=== PATIENT | female | born 1985 | race Caucasian/White ===

== ENCOUNTER 2022-04-05 17:32 | Emergency (ER) | payer OTHER, BC, SELFPAY ==
--- NOTE | ~2022-04-05 | XR_ITS ---
EXAM: XR shoulder LT min 2V DATE: 04/05/2022 18:40 HISTORY: left shoulder injury . COMPARISON: None available. FINDINGS: Normal mineralization. No fracture or dislocation. No lytic or blastic lesion. Joint space s are maintained. No erosion or periosteal change. Soft tissues within normal limits. IMPRESSION: No acute osseous finding in the left shoulder. Reviewed, dictated and finalized at location K.
[2022-04-05 18:13] VITALS: BP 144/64; PULSE 87; RESP 18; TEMP 36.4; O2SAT 100
--- NOTE | 2022-04-05 19:39 | ED.UPPEXIN ---
HPI - Extremity Injury (Upper) General Chief Complaint: Extremity Injury, Upper Stated Complaint: left shoulder injury Time Seen by Provider: 04/05/22 18:10 History of Present Illness HPI narrative: 37-year-old female presents the emergency room for evaluation of left shoulder pain. Patient states she works at [employer], and she was going to the bank to deposit money. Patient states that she had a bag of body in her right hand and transferred her to her left. Upon doing this, she felt a pop sensation in her left shoulder. States that she is unable to move it in multiple directions due to the pain. Review of Systems Review of Systems: CONSTITUTIONAL: Denies fever, chills, or sweats. EYES: Denies visual changes, redness, or discharge. ENT: Denies rhinorrhea, congestion, sore throat, or otalgia. CARDIOVASCULAR: Denies chest pain, palpitations, or edema. RESPIRATORY: Denies cough or dyspnea. GASTROINTESTINAL: Denies abdominal pain, nausea, vomiting, or diarrhea. GENITOURINARY: Denies dysuria or hematuria. SKIN: Denies rash or itching. MUSCULOSKELETAL: Reports left shoulder pain NEUROLOGIC: Denies headache, numbness, dizziness, or weakness. PSYCHIATRIC: Denies anxiety or depression. Exam Narrative: GENERAL: Well-appearing, well-nourished, no physical limitations, and in no acute distress. HEAD: Normocephalic, atraumatic. EYES: Conjunctivae normal, PERRLA and EOMI. CHEST: Clear to auscultation. No respiratory distress. No wheezes rales or rhonchi. No tenderness. HEART: Regular rate and rhythm. No murmur heard. Normal peripheral pulses. BACK: No cervical/thoracic/lumbar tenderness, step-offs, bony abnormality; FROM EXTREMITIES: Left shoulder: Tenderness over the bicep muscle. Limited range of motion with flexion, extension and abduction. Positive drop can test SKIN: Warm, dry, no rash. No noted wounds NEURO: No focal deficits. Alert and oriented x3. MAEW. CN's II-XI intact bilaterally, normal gait PSYCH: Cooperative. Normal mood and affect. Course Vital Signs Vital signs: Vital Signs Temperature 36.4 C L 04/05/22 18:13 Pulse Rate 87 04/05/22 18:13 Respiratory Rate 18 04/05/22 18:13 Blood Pressure 144/64 H 04/05/22 18:13 Pulse Oximetry 100 04/05/22 18:13 Temperature 36.4 C L 04/05/22 18:13 Pulse Rate 87 04/05/22 18:13 Respiratory Rate 18 04/05/22 18:13 Blood Pressure 144/64 H 04/05/22 18:13 Pulse Oximetry 100 04/05/22 18:13 MDM - Extremity Injury (Upper) Imaging Data Radiologist's impression: Impressions Shoulder X-Ray 04/05/22 19:16 IMPRESSION: No acute osseous finding in the left shoulder. Discharge Plan Discharge Clinical Impression: Rotator cuff strain Patient Disposition: Home, Self-Care Condition: Stable Instructions: Antibiotic Form, Rotator Cuff Injury (ED), Rotator Cuff Injury Exercises (DC) Prescriptions: New methocarbamol 500 mg tablet 500 mg PO TID 7 Days Qty: 21 0RF Follow-up/Referrals: Betzy,Vielka Nick MD [Primary Care Provider] - Adriel Moore MD [Physician] - Time of Disposition: 19:38
== END 2022-04-05 19:52 | disposition home or self-care (01) ==
LOC: ANHED 19:41
PROVIDERS: Emergency Provider Nurse Practitioner Family; PCP Family Medicine
DX: S46.012A Strain of muscle(s) and tendon(s) of the rotator cuff of left shoulder, initial encounter (principal); X50.0XXA Overexertion from strenuous movement or load, initial encounter
CPT/HCPCS: 73030; 99283

== ENCOUNTER 2023-04-19 17:37 | Emergency (ER) | payer BC, SELFPAY ==
--- NOTE | ~2023-04-19 | CT_ITS ---
EXAMINATION: CT facial bones w con DATE: 04/19/2023 20:04 INDICATION: Status post wisdom tooth extraction. Bloody discharge. TECHNIQUE: Computed tomography (CT) of the facial bones was performed with 75 cc Omnipaque 350 intrav enous contrast. The dose-length product was 428.00 mGy-cm. Automated exposure control and iterative r econstruction technique were employed. COMPARISON: None FINDINGS: Status post bilateral upper and lower wisdom tooth extraction with associated soft tissue a nd fluid. The fluid and soft tissue extends just lateral to the extraction site, likely postsurgical change. There is moderate mucosal thickening of the maxillary sinuses. There is deformity of the late ral wall of the maxillary sinuses bilaterally,, consistent with nondisplaced fracture. Mastoids are p neumatized. There is mild bilateral submandibular lymphadenopathy, likely reactive. IMPRESSION: 1. Postsurgical changes are present bilaterally consistent with prior bilateral upper and lower wisdo m tooth extraction with associated fractures of the inferior lateral nelson of the maxillary sinuses. Soft tissue and gas extend lateral to the extraction site, likely postsurgical. Cannot exclude underl helena infection. 2: Moderate soft tissue opacification of the maxillary sinuses, left greater than right which may re present a combination of hemorrhage and mucosal thickening. 3: Bilateral submandibular lymphadenopathy, likely reactive. Reviewed, dictated and finalized at location A. IMPRESSION: 1. Postsurgical changes are present bilaterally consistent with prior bilateral upper and lower wisdom tooth extraction with associated fractures of the infer ior lateral nelson of the maxillary sinuses. Soft tissue and gas extend lateral to the extraction site, likely postsurgical. Cannot exclude underlying infectio n. 2: Moderate soft tissue opacification of the maxillary sinuses, left greater t silva right which may represent a combination of hemorrhage and mucosal thickenin g. 3: Bilateral submandibular lymphadenopathy, likely reactive.
[2023-04-19 17:42] VITALS: BP 148/106; PULSE 92; RESP 20; TEMP 36.7; O2SAT 100
--- NOTE | 2023-04-19 18:48 | ED.GENADULT ---
HPI - General Adult General Chief complaint: Unspecified Stated complaint: mouth bleeding post op Time Seen by Provider: 04/19/23 18:23 Source: patient Mode of arrival: ambulatory Limitations: no limitations History of Present Illness HPI narrative: This is a 38-year-old female with PMH of iron deficiency anemia who presents to the ED with with chief complaint of epistaxis bloody discharge after wisdom tooth extraction. She reports her wisdom tooth surgery was 1 week ago. She was using saline rinses for dry socket today as instructed by her dentist and feels that the bleeding from her mouth and nose started shortly after that. Reports she has been bleeding copious amounts of bloody mucus and clots. States her pain is controllable with Percocet. Denies fevers, chills, nausea, vomiting. Related Data Allergies Allergy/AdvReac Type Severity Reaction Status Date / Time No Known Allergies Allergy Verified 04/05/22 19:44 Review of Systems Review of Systems: All systems as dictated in HPI Exam Narrative: GENERAL: Well-appearing, well-nourished, and in no acute distress. HEAD: Normocephalic, atraumatic. EYES: PERRLA and EOMI. ENT: Nares with dried blood. No active bleeding. Grant teeth extraction sites with dried blood and no active bleeding. Mucous membranes moist. Oropharynx without tonsillar hypertrophy exudate or other lesions. Large amount of blood/mucous noted that patient brought in with her. NECK: Supple. No adenopathy or masses. CHEST: No respiratory distress. Clear to auscultation. No wheezes rales or rhonchi HEART: Regular rate and rhythm. No murmur heard. Normal peripheral pulses. ABDOMEN: Soft, nontender, nondistended, normal active bowel sounds. MSK: Normal range of motion. No edema. SKIN: Warm, dry, no rash. NEURO: Alert and oriented x3. No focal deficits. PSYCH: Normal mood and affect. Course Course Emergency Course: Consult 2129: Spoke with Dr. Walters (ENT). Recommends using Afrin and giving clindamycin to cover for any possible infection. He agrees that if she is not toxic appearing findings on the CT scan are likely just postsurgical. He will see patient in clinic tomorrow if the bleeding stops. If it does not he recommends her staying in the hospital. No further recommendations. Reevaluated the patient multiple times. She has had no continued bleeding after several hours of monitoring here in the department. She feels comfortable going home. Vital Signs Vital signs: Vital Signs Temperature 98.1 F 04/19/23 17:42 Pulse Rate 92 04/19/23 17:42 Respiratory Rate 20 04/19/23 17:42 Blood Pressure 148/106 H 04/19/23 17:42 Pulse Oximetry 100 04/19/23 17:42 Oxygen Delivery Room Air 04/19/23 17:42 Temperature 98.1 F 04/19/23 17:42 Pulse Rate 66 04/19/23 21:50 Respiratory Rate 15 04/19/23 21:50 Blood Pressure 136/87 04/19/23 21:50 Pulse Oximetry 99 04/19/23 21:50 Oxygen Delivery Room Air 04/19/23 17:42 Medical Decision Making MDM Narrative Medical decision making narrative: This is a 38-year-old female who presents to the ED with chief complaint of epistaxis and spitting up blood 1 week after wisdom tooth surgery. Vitals are normal. Exam shows dried blood to the nares and wisdom teeth extraction sites. She has brought in a bucket that is full bloody discharge. CBC shows evidence of anemia with hemoglobin at 9.8 however she does note that she has history of iron deficiency anemia so it is unclear whether this is from any acute bleeding episode or chronic. CMP unremarkable. Coags also normal. CT scan facial bones: 1. Postsurgical changes are present bilaterally consistent with prior bilateral upper and lower wisdom tooth extraction with associated fractures of the inferior lateral nelson of the maxillary sinuses. Soft tissue and gas extend lateral to the extraction site, likely postsurgical. Cannot exclude underlying infection. 2:? Moderate soft
[2023-04-19 19:20] LABS: Basophils Absolute Auto 0.1 K/mm3 (0.0-0.1); Basophils Percent Auto 0.9 % (0.2-1.2); Eosinophils Absolute Auto 0.2 K/mm3 (0-0.3); Eosinophils Percent Auto 2.3 % (0-4.4); Hematocrit 32.8 % (37.0-47.0); Hemoglobin 9.8 g/dL (12.0-15.0); Immature Granulocyte Absolute 0.03 K/mm3 (0.00-0.031); Immature Granulocyte Percent A 0.4 % (0-0.5); Lymphocytes Absolute Auto 1.91 K/mm3 (0.9-3.2); Lymphocytes Percent Auto 23.6 % (18.3-44.2); Mean Corpuscular HGB Conc 29.9 g/dl (32-36); Mean Corpuscular Volume 80.4 fl (80-100); Mean Platelet Volume 9.6 fl (7.4-10.4); Monocytes Absolute Auto 0.6 K/mm3 (0.1-0.6); Monocytes Percent Auto 7.7 % (2.6-8.5); Neutrophils Absolute Auto 5.3 K/mm3 (1.3-6.7); Neutrophils Percent Auto 65.1 % (45.5-73.1); Platelet Count Result 486 k/mm3 (150-375); Red Blood Count 4.08 M/mm3 (4.2-5.4); Red Cell Distribution Width 16.4 % (11.5-14.5); White Blood Count 8.1 K/mm3 (4.5-10.0)
[2023-04-19 19:30] LABS: Alanine Aminotransferase 16 U/L (6-35); Albumin Level 4.2 g/dL (3.5-5.1); Alkaline Phosphatase 64 U/L (38-126); Anion Gap 5 mmol/L (8-16); Aspartate Amino Transferase 22 U/L (14-36); Bilirubin,Total 0.3 mg/dL (0.2-1.3); Blood Urea Nitrogen 11 mg/dL (7-17); Calcium 9.2 mg/dL (8.4-10.2); Carbon Dioxide 29 mmol/L (22-30); Chloride 106 mmol/L (98-107); Estimated CRCL calculation 91 ml/min; Estimated Glomerular Filt Rate > 60; Glucose 128 mg/dL (65-110); Potassium 4.3 mmol/L (3.4-5.0); Sodium 140 mmol/L (137-145)
[2023-04-19 19:31] LABS: INR 1.1; Prothrombin Time 14.6 Seconds (11.1-14.7)
[2023-04-19 19:32] LABS: Partial Thromboplastin Time 27.5 SECONDS (22.3-36.8)
[2023-04-19 19:34] LABS: Hypochromasia 1+ (NORMAL); Ovalocytes 1+ (NORMAL); Platelet Estimate Increased (Adequate)
[2023-04-19 19:35] LABS: Schistocytes None Seen (NORMAL)
[2023-04-19 21:50] VITALS: BP 136/87; PULSE 66; RESP 15; O2SAT 99
[2023-04-19] MEDS: OXYMETAZOLINE HCL 0.05% NAS 15 ML BTL (*BKC) 1 SPRAY NASAL (22:23)
== END 2023-04-19 22:29 | disposition home or self-care (01) ==
PROVIDERS: Emergency Provider Physician Assistant; PCP Nurse Practitioner Family
DX: K91.840 Postprocedural hemorrhage of a digestive system organ or structure following a digestive system procedure (principal); Y83.8 Other surgical procedures as the cause of abnormal reaction of the patient, or of later complication, without mention of misadventure at the time of the procedure
CPT/HCPCS: 36415; 70487; 80053; 85025; 85610; 85730; 86850; 86900; 86901; 99284; A9270; Q9967